=== PATIENT | female | born 2000 | race African-American/Black ===

== ENCOUNTER 2023-02-19 12:08 | Emergency (ER) | payer SELFPAY ==
[~2023-02-19] VITALS: Ht 162.6 cm; Wt 120.0 kg
[2023-02-19 12:13] VITALS: BP 132/57; PULSE 66; RESP 17; TEMP 97.6; O2SAT 100
[2023-02-19 13:45] LABS: BASOPHILS % 0.6 % (0.0-2.0); EOSINOPHILS % 1.8 % (0.0-5.0); HEMATOCRIT. 36.2 % (36.0-48.0); MEAN CORPUSCULAR HEMOGLOBIN 27.4 pg (28.0-32.0); MEAN CORPUSCULAR HGB CONC 33.1 g/dL (31.0-37.0); MEAN CORPUSCULAR VOLUME 82.6 fL (81.0-99.0); MEAN PLATELET VOLUME 7.7 fl (7.4-10.4); MONOCYTES % 4.1 % (2.0-8.0); NEUTROPHILS % 68.5 % (40.0-76.0); PLATELET 442 x1000/uL (130-400); RED BLOOD CELL COUNT 4.39 mill/uL (4.2-5.4); RED CELL DISTRIBUTION WIDTH 16.9 % (11.6-14.6); WHITE BLOOD COUNT 9.3 x1000/uL (4.5-11.0)
[2023-02-19 13:55] LABS: CHLORIDE 107 mEq/L (98-107); INDEX HEMOLYSI 2 (1-3); INDEX ICTERIC 1 (1-4); INDEX LIPEMIC 1 (1-3); POTASSIUM 3.7 mEq/L (3.5-5.1); SODIUM 138 mEq/L (136-145)
[2023-02-19 14:03] LABS: ALANINE AMINOTRANSFERASE 23 IU/L (13-61); ALBUMIN 3.3 g/dL (3.4-5.0); ASPARTATE AMINOTRANSFERASE 17 IU/L (15-37); BILIRUBIN TOTAL 0.5 mg/dL (0.1-1.0); CALCIUM 8.7 mg/dL (8.5-10.1); CARBON DIOXIDE 27 mEq/L (21-32); CREATININE 0.8 mg/dL (0.6-1.3); GLUCOSE 153 mg/dL (70-105); PROTEIN TOTAL 7.7 g/dL (6.0-8.3); UREA NITROGEN BLOOD 9 mg/dL (7-21)
[2023-02-19 16:28] LABS: CLARITY URINE CLEAR (CLEAR); COLOR URINE YELLOW (YELLOW); GLUCOSE URINE NEGATIVE (NEGATIVE); KETONES URINE NEGATIVE (NEGATIVE); LEUKOCYTE ESTERASE URINE NEGATIVE (NEGATIVE); NITRITE URINE NEGATIVE (NEGATIVE); OCCULT BLOOD URINE NEGATIVE (NEGATIVE); PH URINE 7.5 (4.5-8.0); PROTEIN URINE NEGATIVE (NEGATIVE); SPECIFIC GRAVITY URINE 1.022 (1.005-1.030)
== END 2023-02-19 18:37 | disposition home or self-care (01) ==
LOC: ER 12:35
DX: B34.9 Viral infection, unspecified (principal)
CPT/HCPCS: 36415; 80053; 81003; 81025; 85025; 99283

== ENCOUNTER 2023-04-18 03:16 | Emergency (ER) | payer MEDICAID, OTHER ==
[~2023-04-18] VITALS: Ht 165.1 cm; Wt 120.0 kg
[2023-04-18 03:31] VITALS: O2SAT 100
[2023-04-18] MEDS ORDERED: POLY17PO3 MT (05:25)
[2023-04-18] MEDS ORDERED: GUAI-450 MT (05:25)
[2023-04-18] MEDS ORDERED: ONDA4TAB11 PO (05:25)
[2023-04-18 05:33] VITALS: BP 124/68; PULSE 70; RESP 18; TEMP 99.3
== END 2023-04-18 05:35 | disposition home or self-care (01) ==
LOC: ER 03:16
DX: B34.9 Viral infection, unspecified (principal); J06.9 Acute upper respiratory infection, unspecified; Z20.822 Contact with and (suspected) exposure to COVID-19
CPT/HCPCS: 81025; 99283

== ENCOUNTER 2023-07-24 19:40 | Emergency (ER) | payer OTHER ==
[~2023-07-24] VITALS: Ht 165.1 cm; Wt 90.7 kg
[~2023-07-24 19:40] MED LIST: GUAI-450 MT; ONDA4TAB11 PO; POLY17PO3 MT
[2023-07-24 20:03] VITALS: O2SAT 98
[2023-07-24] MEDS: IBUPROFEN 600MG TABLET PO STA (23:02)
[2023-07-25 00:59] VITALS: BP 150/87; PULSE 79; RESP 20; TEMP 97.9
[2023-07-25] MEDS: IBUPROFEN 600MG TABLET PO NR (01:07)
== END 2023-07-25 01:42 | disposition home or self-care (01) ==
LOC: ER 19:40
DX: B34.9 Viral infection, unspecified (principal); R05.9 Cough, unspecified; R50.9 Fever, unspecified; Z20.822 Contact with and (suspected) exposure to COVID-19
CPT/HCPCS: 71045; 87420; 87426; 87804; 99284